=== PATIENT | female | born 1955 | race Caucasian/White ===

== ENCOUNTER 2016-11-19 08:02 | Emergency (ER) | payer OTHER ==
[~2016-11-19] VITALS: Ht 170.2 cm; Wt 124.3 kg
--- NOTE | 2016-11-19 09:12 | ED GI/GU/ABDOMINAL COMPLAINT ---
History of Present Illness General Chief Complaint: Nausea, Vomiting, Diarrhea Stated Complaint: + NVD X3 DAYS Source: patient, old records Exam Limitations: no limitations Vital Signs & Intake/Output Vital Signs & Intake/Output Vital Signs Date Time Temp Pulse Resp B/P Pulse O2 O2 Flow FiO2 Ox Delivery Rate 11/19 1153 98.0 88 18 161/72 98 Room Air 11/19 0938 Room Air 11/19 0806 97.9 99 20 142/90 97 Room Air Allergies Coded Allergies: acetaminophen (From PERCOCET) (RASH 11/19/16) codeine (RASH 11/19/16) morphine (RASH 11/19/16) oxycodone (From PERCOCET) (RASH 11/19/16) Reconcile Medications Atorvastatin Calcium 20 MG TABLET 1 TAB PO DAILY CHOLESTEROL (Reported) Desvenlafaxine Succinate (Pristiq ER) 50 MG TAB.ER.24H 1 TAB PO DAILY MENTAL HEALTH (Reported) Dicyclomine Hydrochloride (Bentyl) 10 MG CAPSULE 1 CAP PO TID PRN pain Olmesartan/Hydrochlorothiazide (Benicar Hct 40-12.5 MG Tablet) 40 MG-12.5 MG TABLET 1 TAB PO DAILY HEART (Reported) Ondansetron (Zofran Odt) 4 MG TAB.RAPDIS 1 TAB SL TID PRN nausea Tramadol HCl 50 MG TABLET 1 TAB PO BIDP PRN PAIN (Reported) Triage Note: PT TO ED C/O N/V/D X 3 DAYS. C/O FEELING DEHYDRATED, DIZZY AND ABD PAIN. Triage Nurses Notes Reviewed? yes LMP (ages 10-50): hysterectomy ? n Is pt currently ? No Onset: Abrupt Duration: day(s): (2), constant, waxing and waning Timing: recent history Quality/Severity: cramping Severity Numbers: 5 Location: generalized abdomen Radiation: no radiation Activities at Onset: none Modifying Factors: Worsens With: eating. Associated Symptoms: diarrhea, nausea/vomiting HPI: 61-year-old female history of appendectomy hysterectomy LAP-BAND hypertension presents emergency room for evaluation complaining of generalized abdominal pain described as cramping in nature constant however laxity and waning worse after episodes of nausea vomiting diarrhea which she's had for the past 2 days. She reports her grandson is been home sick with similar symptoms. She denies fevers chills however unable to tolerate by mouth and feels dehydrated. No urinary symptoms chest pain shortness of breath. She is not taken anything for her symptoms. No recent travel. She denies tobacco or alcohol use. Symptoms are cramping and aching nonradiating (ROXANA VAZQUEZ) Past History Travel History Traveled to [place] past 21 day No Medical History Any Pertinent Medical History? see below for history Cardiovascular: hypertension, hyperlipidemia Respiratory: asthma Psychiatric: depression Surgical History Surgical History: appendectomy, cholecystectomy, hysterectomy, lap band Psychosocial History What is your primary language Ecuadorean Tobacco Use: Quit >30 days ago ETOH Use: denies use Illicit Drug Use: denies illicit drug use Family History Hx Contributory? No (ROXANA VAZQUEZ) Review of Systems Review of Systems Constitutional: Reports: see HPI. All Other Systems: Reviewed and Negative Comments Review of systems: See HPI, All other systems negative. Constitutional, no chills no fever, no malaise HEENT: No visual changes no sore throat no congestion, Cardiovascular: No chest pain , no palpitation Skin, no jaundice no rashes, no change in skin Respiratory: No dyspnea no cough no sputum GI: nausea vomiting, diarrhea, no bloating/constipation : No dysuria No hematuria, no frequency, no discharge Muscle skeletal: No joint pain, no back pain, no neck pain, Neurologic, no headache Psych: No stress Heme/endocrine: No bruising no bleeding Immunology: No lymphadenopathy (ROXANA VAZQUEZ) Physical Exam Physical Exam General Appearance: well developed/nourished, alert, awake Gastrointestinal: normal bowel sounds, soft, non-tender Comments: Well-developed well-nourished person in no acute distress HEENT: Normal EENT exam; PERRL, EOMI, HEAD is atraumatic. moist mucous membranes. Neck: Supple, normal range of motion Back: Nontender, no CVA tenderness. Full range of motion Cardiovascular: Regular rate and rhythms no murmurs rubs Respiratory: No respiratory distress. Patient speaking in full complete sentences. Breath sounds clear to auscultation bilaterally: NO W/R/R Abdomen: Soft, nontender nondistended, no appreciable organomegaly. Normal bowel sounds. No rebound/guarding, No appreciable enlargement of the abdominal aorta, No ascites. Extremity: No edema, full range of motion of extremities Neuro: Alert oriented x3, motor sensory normal, There were no obvious focal neurologic abnormalities. Skin: No appreciable rash on exposed skin, skin is warm and dry. No diaphoresis no jaundice Psych: Mood and affect is normal, memory and judgment is normal. Core Measures ACS in differential dx? No Severe Sepsis Present: No Septic Shock Present: No (CRISTINE WISE,ROXANA) Progress Differential Diagnosis: bowel obstruction, diverticulitis, gastritis, hepatitis, hernia, inflamm bowel dis, pancreatitis, PUD/GERD, perforated viscous, SBO Plan of Care: Orders Procedure Date/time Status Saline Lock 11/19 917 Active LIPASE 11/19 917 Complete COMPREHENSIVE METABOLIC PANEL 11/19 917 Complete CBC WITHOUT DIFFERENTIAL 11/19 917 Complete AMYLASE 11/19 917 Complete Laboratory Tests 11/19/16 1006: CBC w Diff NO MAN DIFF REQ, RBC 4.64, MCV 81.9, MCH 27.3, RDW 15.6 H, MPV 7.9, Gran % 71.2, Lymphocytes % 13.7 L, Monocytes % 14.6 H, Eosinophils % 0.3, Basophils % 0.2, Absolute Granulocytes 3.1, Absolute Lymphocytes 0.6 L, Absolute Monocytes 0.6, Absolute Eosinophils 0, Absolute Basophils 0, PUBS MCHC 33.3 11/19/16 0931: Anion Gap 10, Estimated GFR 57 L, BUN/Creatinine Ratio 23.0, Glucose 98, Calcium 9.2, Total Bilirubin 0.5, AST 60 H, ALT 85 H, Alkaline Phosphatase 141 H, Total Protein 6.7, Albumin 3.8, Globulin 2.9, Albumin/Globulin Ratio 1.3, Amylase 49, Lipase 142 Patient clinically appears well this time labs ordered medically with Zofran 4 IV IV fluids we'll continue to monitor I discussed the patient at length all of her lab results she is feeling improved IV fluids running we'll continue to monitor, ABD remains soft nontender no rebound or guarding 11/19/2016 11:59:20 AM patient tolerated by mouth challenge.abd is soft nontender I discussed with the patient at length all of their results. I had an extensive conversation regarding need for close follow up with their primary care physician this week as well as return precautions. I answered all of their questions, they feel comfortable with the plan and follow-up care. I discussed the medications that they will receive with the patient. I gave them signs and symptoms that could indicate an adverse reaction. I have advised them to limit their activities until they can see how they respond to the medication. (ROXANA VAZQUEZ) Initial ED EKG: none (ROXANA VAZQUEZ) Departure Departure Time of Disposition: 1159 Disposition: HOME OR SELF CARE Condition: Stable Clinical Impression Primary Impression: Nausea vomiting and diarrhea Referrals: ROSALIO GUADARRAMA,GERARDO Joseph (PCP/Family) Additional Instructions: [place] diet clear liquids advance as tolerated. Zofran for nausea, bentyl if needed for abdominal pain/cramps. Follow up with your primary care physician this week, return to emergency room at anytime sooner for symptoms worsen or have any other concerns. The prescription was sent to your [facility] pharmacy. Departure Forms: Customer Survey General Discharge Information Prescriptions: Current Visit Scripts Ondansetron (Zofran Odt) 1 TAB SL TID PRN nausea #10 TAB Dicyclomine Hydrochloride (Bentyl) 1 CAP PO TID PRN pain #12 CAP (ROXANA VAZQUEZ) PA/DOLL WIG MAKER Co-Sign Statement Statement: ED Attending supervision documentation- [] I saw and evaluated the patient. I have also reviewed all the pertinent lab results and diagnostic results. I agree with the findings and the plan of care as documented in the PA's/DOLL WIG MAKER's documentation. [x] I have reviewed the ED Record and agree with the PA's/DOLL WIG MAKER's documentation. [] Additions or exceptions (if any) to the PAs/DOLL WIG MAKER's note and plan are summarized below: [] (DEMETRIUS MULLEN DO)
[2016-11-19 10:12] LABS: ABSOLUTE BASOPHIL COUNT 0 /CUMM (0.0-0.2); ABSOLUTE EOSINOPHIL COUNT 0 /CUMM (0.0-0.7); ABSOLUTE GRANULOCYTE CT 3.1 /CUMM (1.4-6.5); ABSOLUTE LYMPH COUNT 0.6 /CUMM (1.2-3.4); ABSOLUTE MONOCYTE COUNT 0.6 /CUMM (0.10-0.60); BASOPHIL % 0.2 % (0.0-2.0); EOSINOPHIL % 0.3 % (0-5); GRANULOCYTE % 71.2 % (42.2-75.2); MEAN CORPUSCULAR HGB 27.3 PG (27.0-31.0); MEAN CORPUSCULAR HGB CONC 33.3 G/DL (33.0-37.0); MEAN CORPUSCULAR VOLUME 81.9 FL (81.0-99.0); MEAN PLATELET VOLUME 7.9 FL (7.4-10.4); RBC DISTRIBUTION WIDTH 15.6 % (11.5-14.5); RED BLOOD CELL CT 4.64 /CUMM (4.20-5.40); WHITE BLOOD CELL COUNT 4.4 /CUMM (4.8-10.8)
[2016-11-19] MEDS ORDERED: PRISTIQ ER50 MG PO (10:12)
[2016-11-19] MEDS ORDERED: ATORVASTATIN CA20 M1 PO (10:12)
[2016-11-19] MEDS ORDERED: BENICAR HCT 401 EACH PO (10:12)
[2016-11-19] MEDS ORDERED: TRAMADOL HCL50 M1 PO (10:12)
[2016-11-19 10:29] LABS: PLATELET COUNT 115 /CUMM (130-400)
[2016-11-19] MEDS ORDERED: BENTYL10 M1 PO (10:58)
[2016-11-19] MEDS ORDERED: ZOFRAN ODT4 M1 SL (10:58)
[2016-11-19 11:53] VITALS: BP 161/72
== END 2016-11-19 12:00 ==
LOC: ERH 08:02
PROVIDERS: Physician Assistant Medical
DX: R11.2 Nausea with vomiting, unspecified (principal); R19.7 Diarrhea, unspecified
CPT/HCPCS: 96361; 96374; 99291; J2405